=== PATIENT | female | born 1950 | race Caucasian/White ===

== ENCOUNTER 2016-10-22 08:28 | Day surgery (SDC) | payer MEDICARE ==
[~2016-10-22] VITALS: Ht 157.5 cm; Wt 55.0 kg
[~2016-10-22 08:28] MED LIST: 0.9% Sodium Chloride 1,000 ML IV SCH; ASPI325T32 PO; CHOL200025 PO; DICY10CA56 PO; DIGE1CAP PO; L. A1CAP7 PO; MULT-1018 PO; NITR100 PO; OMEP20CA11 PO; SUMA50TA31 PO; Sodium Chloride LOK Flush 10 mL Syringe IV PRN; fentaNYL-PF 50 mCg/mL 2 mL Inj IVPUSH PRN
[2016-10-22 08:51] VITALS: BP 139/74; PULSE 72; RESP 14; O2SAT 99
[2016-10-22 09:42] VITALS: BP 110/62; PULSE 67; RESP 14; O2SAT 94
[2016-10-22 09:49] VITALS: BP 115/59; PULSE 60; RESP 14; O2SAT 95
[2016-10-22 09:56] VITALS: BP 123/64; PULSE 65; RESP 15; O2SAT 97
--- NOTE | 2016-10-22 13:55 | ENDO ---
[address] [address] ENDOSCOPY PROCEDURE PATIENT: TRICIA RUVALCABA : 1950 MR#: [id number] ADMIT: 10/22/2016 JOB ID: [id number] DATE: 10/22/2016 PROCEDURE: Esophagogastroduodenoscopy with biopsy. PREOPERATIVE DIAGNOSIS(ES): Epigastric pain. POSTOPERATIVE DIAGNOSIS(ES): 1. Mild bile reflux. 2. Mild nonerosive gastritis. ANESTHESIA: 1. Fentanyl 100 mcg. 2. Versed 5 mg IV administered. COMPLICATIONS: None. BLOOD LOSS: Minimal. DESCRIPTION OF PROCEDURE: After risks and benefits were explained to the patient, informed consent was obtained. After anesthesia administered, upper endoscope was then inserted into the mouth, intubated into the esophagus, stomach, second portion of duodenum, and mucosa carefully examined. After procedure was done, the scope withdrawn and procedure terminated. FINDINGS: Upon inspection of the esophagus, the esophagus was normal without masses, ulcers or lesions. Z-line located 40 cm from incisors. Upon entering the stomach, there was mild bile reflux that was seen in the stomach and also mild nonerosive gastritis. Retroflexion was normal. Duodenal bulb, first and second portion were normal. Biopsies taken of the antrum and body of the stomach. IMPRESSIONS: 1. Mild nonerosive gastritis. 2. Mild bile reflux. RECOMMENDATION: 1. Await pathology results. 2. Followup in GI clinic as needed.
--- NOTE | 2016-10-23 11:02 | PATH ---
SURGICAL PATHOLOGY Attending Physician:Christian Green MD CASE STATUS: Signed Out PATIENT NAME: TRICIA RUVALCABA PID: [id number] : 1950 DATE COLLECTED:10/22/2016 16:01 SPECIMEN: 1: Stomach, Antrum, Biopsy 2: Gastric, Biopsy CLINICAL HISTORY: 1. ANTRUM BX 2. GASTRIC BODY BX FINAL DIAGNOSIS: 1.GASTRIC ANTRUM BIOPSY: ANTRAL MUCOSA WITH NO DIAGNOSTIC ALTERATIONS. Negative for Helicobacter organisms. Negative for intestinal metaplasia. Negative for dysplasia and malignancy. 2.GASTRIC BODY BIOPSY: BODY-TYPE MUCOSA WITH NO DIAGNOSTIC ALTERATIONS. Negative for Helicobacter organisms. Negative for intestinal metaplasia. Negative for dysplasia and malignancy. ICD10 code R10.13 GROSS DESCRIPTION: The specimen is received in two formalin filled containers labeled with the patient's name. 1). The specimen is sublabeled "antrum" and consists of 2 portions of tissue which aggregate to 0.3 x 0.3 x 0.2 CM. The specimen is entirely submitted in cassette 1A. 2). The specimen is sublabeled "gastric body" and consists of 2 portions of tissue which aggregate to 0.3 x 0.3 x 0.2 CM. The specimen is entirely submitted in cassette 2A. 10/22/2016 [facility] MICRO DESCRIPTION: See diagnosis. ICD-9 CODES: CPT CODES: 1: 53502 2: 87419 Electronically Signed Out Johnna Salcedo MD [facility] Pathology [facility], [place] [address] Technical component performed at [facility], [address] [place] [address] [address], [address]
== END 2016-10-22 23:59 | disposition home or self-care (01) ==
LOC: END 08:28
PROVIDERS: ATTEND Internal Medicine Gastroenterology
DX: K29.70 Gastritis, unspecified, without bleeding (principal); K21.9 Gastro-esophageal reflux disease without esophagitis; F32.9 Major depressive disorder, single episode, unspecified; M19.90 Unspecified osteoarthritis, unspecified site; Z87.440 Personal history of urinary (tract) infections; Z79.890 Hormone replacement therapy; Z79.82 Long term (current) use of aspirin
CPT/HCPCS: 43239; 88305; G0500; J2250; J3010; J7030